=== PATIENT | male | born 1940 | race Caucasian/White ===

== ENCOUNTER 2018-08-02 19:37 | Inpatient (IN) | payer MEDICARE, MEDICAID ==
[2018-08-02 21:34] VITALS: BP 121/61
[2018-08-02] MEDS ORDERED: Maalox 30 mL Cup PO PRN (22:14)
[2018-08-02] MEDS ORDERED: Magnesium Hydroxide (MOM) 30 mL UDC PO PRN (22:14)
[2018-08-03] MEDS: Pantoprazole 40 mg/Packet PO SCH (06:37)
[2018-08-03] MEDS: INSULIN ASPART SLIDING SCALE 100 UNITS/ML UNIT SUBQ SCH ×4 (06:37→20:43)
[2018-08-03 07:02] LABS: ALB/GLOB RATIO 1.1 (1.0-1.8); ALBUMIN 2.7 gm/dL (4.2-5.5); ALKALINE PHOSPHATASE 56 U/L (34-104); ANION GAP 11.7 (7.0-16.0); BILIRUBIN,TOTAL 1.4 mg/dL (0.3-1.0); BUN - UREA NITROGEN 11 mg/dL (7-25); CALCIUM SERUM 8.3 mg/dL (8.6-10.3); CARBON DIOXIDE 28.2 mEq/L (21.0-31.0); CHLORIDE 107 mEq/L (98-107); CHOLESTEROL 89 mg/dL (<200); CREATININE - SERUM 0.5 mg/dL (0.7-1.3); GLUCOSE 79 mg/dL (70-105); HDL -HIGH DENSITY LIPOPROTEIN 20 mg/dL (23-92); SGOT 27 U/L (13-39); SGPT/ALT 23 U/L (7-52); SODIUM SERUM 144 mEq/L (136-145); TOTAL PROTEIN,SERUM 5.2 gm/dL (6.0-8.3); TRIGLYCERIDES 129 mg/dL (<150)
[2018-08-03 07:13] LABS: POTASSIUM SERUM 2.9 mEq/L (3.5-5.1)
[2018-08-03] MEDS ORDERED: Potassium Chloride 20 mEq ER Tab PO ONE ×2 (08:26→15:00)
[2018-08-03] MEDS: Atorvastatin Calcium 10 MG TAB PO SCH (09:00)
[2018-08-03] MEDS: Enoxaparin 40 mg/0.4 mL 0.4mL Syr SUBQ SCH (09:00)
[2018-08-03] MEDS: Multivitamin Tab PO SCH (09:00)
[2018-08-03] MEDS: Ferrous Sulfate 325 MG TAB PO SCH ×2 (09:00→16:21)
[2018-08-03] MEDS ORDERED: Non-Formulary Item 1 EA (Tiotropium Bromide [Spiriva] 18 MCG) INH SCH (09:00)
[2018-08-03] MEDS: Potassium Chloride 20 mEq ER Tab PO SCH ×2 (09:00→11:29)
--- NOTE | 2018-08-03 16:46 | History & Physical ---
ADMIT DATE: 08/03/2018 SUBJECTIVE: A 77-year-old male. REQUESTING PHYSICIAN: Dr. Brown. PRESENTING COMPLAINT: "I don't wanna eat." HISTORY OF PRESENT ILLNESS: A 77-year-old male who was a resident of [facility], fell and presented to [facility], noted to have a right hip fracture. For that, the patient underwent right ORIF of the right hip. Post-procedure, the patient was having some behavioral problem and started to refuse medication and started to stop eating and pulled out his Nieto catheter. The patient was seen by psychiatrist and recommended the patient should be admitted to inpatient psych for his behavioral issue. PAST MEDICAL HISTORY: Remarkable for: 1. Hyperlipidemia. 2. Psychotic disorder. 3. Hypertension. 4. Degenerative joint disease. 5. Glaucoma. 6. Legally blindness. 7. High risk for fall. MEDICATIONS AT HOME: Tylenol, [place], Maalox, vitamin C, Lipitor, Alphagan eye drop, Wellbutrin, Celexa, Colace, Trusopt eyedrop, Lovenox, iron, Neurontin, sliding scale insulin, albuterol, nebulizer treatment, lorazepam, multivitamin, Protonix, potassium, Seroquel, tramadol. ALLERGIES: The patient is not allergic to medications. SOCIAL HISTORY: He resides in assisted living facility. The patient has no smoking or alcohol use. FAMILY HISTORY: Unavailable. REVIEW OF SYSTEMS: The patient denies any headache, denies any chest pain, shortness of breath, palpitation, dizziness, nausea, vomiting, diarrhea, dysuria, hematuria, hematochezia, melena. No seizure or syncopal episode. The patient refused to eat. PHYSICAL EXAMINATION: GENERAL: The patient is alert, awake, oriented, lying in the bed without any acute distress. VITAL SIGNS: Temperature 98, pulse is 77, respiratory rate 18, blood pressure 130/90. SKIN: Warm to touch. Adequate skin turgor. No petechia, no purpura. HEENT: Normocephalic, atraumatic, legal blindness noted. Tongue was pink and coated. No facial asymmetry. NECK: Supple, no JVD, no hepatojugular reflex. No lymphadenopathy, thyromegaly or carotid bruit. HEART: Both heart sounds are regular. No S3, no S4, no murmur. CHEST AND LUNGS: Equal in expansion, no expiratory wheezing. ABDOMEN: Soft. No guarding, no rigidity. Liver and spleen not palpable. No palpable mass. EXTREMITIES: No edema. Intact dressing for recently done hip surgery noted, but it was a +2. No calf tenderness. NEUROLOGIC: Alert, awake, follows command. Decreased power in upper and lower extremity noted. AVAILABLE DIAGNOSTIC DATA: Performed at [facility] has been reviewed. CLINICAL IMPRESSION: 1. Status post ORIF for left hip fracture. 2. Diabetes. 3. Hyperlipidemia. 4. Legally blindness. 5. Gastroesophageal reflux disease. 6. Psychotic disorder. 7. Glaucoma. 8. Hypokalemia. 9. High risk for fall. PLAN: 1. Psychotic evaluation and management deferred to psychiatrist. 2. Continue to provide wound care. 3. Appropriate home medicine reconciliation. 4. Fall precautions. 5. Replace potassium. 6. Nutritional support. 7. General nursing care. 8. Follow lab. 9. We will continue to follow this patient during the stay in the hospital. I sincerely thank you, Dr. Brown, for giving me the opportunity to participate in the patient of yours. JOB# [id number]
[2018-08-04 06:24] LABS: % BASOPHILS 0.3 % (0.0-2.0); % EOSINOPHILS 0.3 % (0.0-5.0); % LYMPHOCYTES 9.2 % (20.0-50.0); % MONOCYTES 8.5 % (2.0-10.0); % NEUTROPHILS 81.7 % (40.0-80.0); HEMATOCRIT 28.6 % (41.0-60); HEMOGLOBIN 9.5 gm/dL (12-16); LYMPHOCYTE ABSOLUTE 0.7 Th/cmm (1.5-3.0); MEAN CELL VOLUME 92.6 fl (80-99); MEAN CORPUSCULAR HEMOGLOBIN 30.8 pg (27.0-31.0); MEAN CORPUSCULAR HGB CONC 33.3 pg (28.0-36.0); MEAN PLATELET VOLUME 7.1 fl; MONOCYTE ABSOLUTE 0.7 Th/cmm (0.3-1.0); NEUTROPHILE ABSOLUTE 6.6 Th/cmm (1.8-8.0); PLATELET COUNT 349 Th/cmm (150-400); RED BLOOD COUNT 3.08 Mil/cmm (3.80-5.80)
[2018-08-04] MEDS: INSULIN ASPART SLIDING SCALE 100 UNITS/ML UNIT SUBQ SCH ×4 (06:35→21:02)
[2018-08-04] MEDS: Pantoprazole 40 mg/Packet PO SCH (06:35)
[2018-08-04 06:37] LABS: ALBUMIN 2.7 gm/dL (4.2-5.5); ALKALINE PHOSPHATASE 57 U/L (34-104); ANION GAP 10.5 (7.0-16.0); BILIRUBIN,TOTAL 1.1 mg/dL (0.3-1.0); BUN - UREA NITROGEN 12 mg/dL (7-25); CALCIUM SERUM 8.3 mg/dL (8.6-10.3); CARBON DIOXIDE 28.4 mEq/L (21.0-31.0); CHLORIDE 106 mEq/L (98-107); CREATININE - SERUM 0.5 mg/dL (0.7-1.3); GLUCOSE 80 mg/dL (70-105); MAGNESIUM 2.1 mg/dL (1.9-2.7); SGOT 32 U/L (13-39); SGPT/ALT 27 U/L (7-52); SODIUM SERUM 142 mEq/L (136-145); TOTAL PROTEIN,SERUM 5.4 gm/dL (6.0-8.3)
[2018-08-04 06:44] LABS: POTASSIUM SERUM 2.9 mEq/L (3.5-5.1)
[2018-08-04] MEDS: Ferrous Sulfate 325 MG TAB PO SCH ×2 (10:00→18:00)
[2018-08-04] MEDS: Atorvastatin Calcium 10 MG TAB PO SCH (10:00)
[2018-08-04] MEDS: Multivitamin Tab PO SCH (10:17)
[2018-08-04] MEDS: Enoxaparin 40 mg/0.4 mL 0.4mL Syr SUBQ SCH (10:25)
[2018-08-04] MEDS: Potassium Chloride 20 mEq ER Tab PO SCH ×3 (10:25→21:07)
--- NOTE | 2018-08-05 00:53 | Progress Notes ---
DATE: IDENTIFICATION: A 77-year-old male. SUBJECTIVE: The patient is seen and examined. No new event. The patient had a followup lab, which revealed potassium of 2.9. The patient has a poor p.o. intake. The patient currently denies any chest pain or shortness of breath. PHYSICAL EXAMINATION: VITAL SIGNS: Temperature 98.2, pulse 61, respiratory 18, and blood pressure 118/58. HEENT: No facial asymmetry. NECK: Supple, legally blindness noted. HEART: Regular. CHEST AND LUNGS: Equal in expansion, no expiratory wheezing. ABDOMEN: Soft, no guarding or rigidity. Bowel sounds present. No palpable mass. EXTREMITIES: No edema. Intact dressing in the left upper lateral aspect of the lower extremity noted. CLINICAL IMPRESSION: 1. Hypokalemia. 2. Status post open reduction internal fixation, left hip. 3. Psychotic disorder. 4. Hypertension. 5. Hyperlipidemia. 6. Diabetes. 7. Degenerative joint disease. 8. Glaucoma. 9. Legally blindness. 10. High risk for fall. PLAN: Replace potassium today. Get the followup lab for tomorrow. Continue to monitor blood sugar, blood pressure. Fall precautions, nutritional support, and general nursing care. Continue current medication as prescribed. We will follow this patient during the stay in the hospital. JOB# [id number]
[2018-08-05 05:30] LABS: ANION GAP 10.7 (7.0-16.0); BUN - UREA NITROGEN 10 mg/dL (7-25); CALCIUM SERUM 8.3 mg/dL (8.6-10.3); CARBON DIOXIDE 26.2 mEq/L (21.0-31.0); CHLORIDE 107 mEq/L (98-107); CREATININE - SERUM 0.5 mg/dL (0.7-1.3); GLUCOSE 75 mg/dL (70-105); MAGNESIUM 2.1 mg/dL (1.9-2.7); POTASSIUM SERUM 3.9 mEq/L (3.5-5.1); SODIUM SERUM 140 mEq/L (136-145)
[2018-08-05] MEDS: Pantoprazole 40 mg/Packet PO SCH (06:29)
[2018-08-05] MEDS: INSULIN ASPART SLIDING SCALE 100 UNITS/ML UNIT SUBQ SCH ×4 (06:30→21:14)
[2018-08-05] MEDS: Ferrous Sulfate 325 MG TAB PO SCH ×3 (10:35→18:54)
[2018-08-05] MEDS: Atorvastatin Calcium 10 MG TAB PO SCH ×2 (10:35→12:16)
[2018-08-05] MEDS: Potassium Chloride 20 mEq ER Tab PO SCH (10:35)
[2018-08-05] MEDS: Multivitamin Tab PO SCH ×2 (10:35→12:16)
[2018-08-05] MEDS: Enoxaparin 40 mg/0.4 mL 0.4mL Syr SUBQ SCH (11:39)
--- NOTE | 2018-08-05 21:24 | Progress Notes ---
DATE: SUBJECTIVE: Chart reviewed and the patient interviewed. Also discussed the patient's condition with the staff and reviewed records and labs. The patient is still confused and he is still severely depressed and anxious. The patient also is feeling hopeless and is interacting minimally with peers and with others and he seems to have lack of energy and lack of motivations. The patient also is having mood swings and he is resisting care at times. Otherwise, the patient is compliant with taking his medications, although he still at times and resisting taking the medications. ASSESSMENT: The patient is still confused and depressed. TREATMENT PLAN: We will continue to monitor his behavior and his condition closely. Also, we will add Lexapro in a dose of 10 mg every day and we will continue to follow up. JOB# [id number]
[2018-08-06] MEDS: Pantoprazole 40 mg/Packet PO SCH (06:53)
[2018-08-06] MEDS: INSULIN ASPART SLIDING SCALE 100 UNITS/ML UNIT SUBQ SCH ×4 (06:54→20:57)
[2018-08-06] MEDS: Ferrous Sulfate 325 MG TAB PO SCH ×2 (08:25→17:35)
[2018-08-06] MEDS: Enoxaparin 40 mg/0.4 mL 0.4mL Syr SUBQ SCH (08:26)
[2018-08-06] MEDS: Atorvastatin Calcium 10 MG TAB PO SCH ×2 (08:31→09:16)
[2018-08-06] MEDS: Multivitamin Tab PO SCH ×2 (08:38→09:16)
--- NOTE | 2018-08-06 23:29 | Progress Notes ---
DATE: 08/06/2018 SUBJECTIVE: The patient is currently in the hospital, believes he is here for "sprained ankle," noted to be confused, still depressed, withdrawn, mostly keeps to himself. The patient under the care of Dr. Miranda. The patient is coming from another hospital, referred by Dr. Brown and noted to be suspicious, delusional and preoccupied. The patient is coming in from [facility]. ASSESSMENT: The patient is still impulsive, unpredictable, mostly withdrawn, sometimes refusing medications, at times poking his mouth, put his finger or forcing ____, preoccupied, talking to self, ongoing psychotic symptoms. MEDICATIONS: Reviewed including dosages and frequencies. We will continue Seroquel, continue inpatient hospitalization. The patient with ongoing behaviors. JOB# [id number]
[2018-08-07] MEDS: Pantoprazole 40 mg/Packet PO SCH (06:37)
[2018-08-07] MEDS: Enoxaparin 40 mg/0.4 mL 0.4mL Syr SUBQ SCH (10:14)
[2018-08-07] MEDS: Ferrous Sulfate 325 MG TAB PO SCH ×2 (10:14→16:56)
[2018-08-07] MEDS: Multivitamin Tab PO SCH (10:15)
[2018-08-07] MEDS: Atorvastatin Calcium 10 MG TAB PO SCH (10:15)
[2018-08-07] MEDS: INSULIN ASPART SLIDING SCALE 100 UNITS/ML UNIT SUBQ SCH ×3 (12:12→21:35)
--- NOTE | 2018-08-07 23:00 | Progress Notes ---
DATE: 08/07/2018 SUBJECTIVE: The patient is currently in the hospital, believing he is here for a sprained ankle, noted to be confused. He states, "I am not worth of talk." The patient making some voices comments towards people asking for cigarettes. The patient is still delusional, angry, seems preoccupied, fixated, and ruminative on smoking. Multiple episodes of awakenings last night and early childhood aide classroom awakenings, noted to be unpredictable, upset at staff. ASSESSMENT: The patient remains symptomatic, some disorientation noted, angry, lashes out at staff, angry outbursts, not safe for a lower level of care, going on races attire this morning. PLAN: We will continue to monitor. Medications were noted. Consider a dosage increase of Seroquel. JOB# [id number]
[2018-08-08] MEDS: INSULIN ASPART SLIDING SCALE 100 UNITS/ML UNIT SUBQ SCH ×4 (06:53→20:20)
--- NOTE | 2018-08-08 09:38 | Progress Notes ---
DATE: 08/08/2018 SUBJECTIVE: The patient seen and examined. The patient is lying in the bed. No new event. PHYSICAL EXAMINATION: VITAL SIGNS: On exam, temperature 97.6, pulse 75, respiratory rate 20, blood pressure 107/57. HEENT: No facial asymmetry. NECK: Supple, no JVD. HEART: Regular. CHEST AND LUNGS: Equal in expansion, no expiratory wheezing. ABDOMEN: Soft. EXTREMITIES: No edema. CLINICAL IMPRESSION: 1. Status post open reduction and internal fixation of left hip. 2. Psychotic disorder. 3. Hypertension. 4. Hyperlipidemia. 5. Diabetes. 6. Degenerative joint disease. 7. Glaucoma. 8. High risk for fall. PLAN: 1. Follow up lab. 2. Monitor blood pressure, blood sugar. 3. Fall precaution. 4. Nutritional support. 5. General nursing care. 6. Continue current medication as prescribed. 7. Care plan reviewed. JOB# [id number]
[2018-08-08] MEDS: Atorvastatin Calcium 10 MG TAB PO SCH (10:09)
[2018-08-08] MEDS: Pantoprazole 40 mg/Packet PO SCH (10:09)
[2018-08-08] MEDS: Ferrous Sulfate 325 MG TAB PO SCH ×2 (10:09→17:33)
[2018-08-08] MEDS: Multivitamin Tab PO SCH (10:09)
[2018-08-08] MEDS: Enoxaparin 40 mg/0.4 mL 0.4mL Syr SUBQ SCH (12:58)
--- NOTE | 2018-08-08 14:54 | Progress Notes ---
DATE: 08/08/[address] Miranda. Case was discussed with staff of the patient, reviewed records. This is a 77-year-old man, who was admitted on 08/02/2018. This is the patient of Dr. Miranda, who is still confused, depressed, anxious, feeling hopeless, minimal interaction with others, unable to make safe plan for self-care with no energy, no motivation with mood swings, irritability, resisting care at times, and refusing medication at times. No side effects with the medications, no sedation, no nausea, no extrapyramidal symptoms. He is on Celexa 20 mg a day, atorvastatin, iron, gabapentin, hydrocodone, insulin, and Seroquel 200 at bedtime that was increased on the and we will continue outpatient group therapy, milieu therapy, and adjust medications as needed. JOB# [id number]
[2018-08-09] MEDS: Hydrocodone/APAP 10 mg/325 mg Tab PO PRN (06:42)
[2018-08-09] MEDS: Pantoprazole 40 mg/Packet PO SCH (06:42)
--- NOTE | 2018-08-09 07:48 | Psychiatric Evaluation ---
DATE OF SERVICE: PSYCHIATRIC INITIAL EVALUATION AND MENTAL STATUS EXAM PATIENT'S AGE: 77. SEX: Male. PHYSICIAN: Rosa Miranda MD, MPH CHIEF COMPLAINT: Severe depression. HISTORY OF PRESENT ILLNESS: The patient is a 77-year-old male who has been under my care for several years in [facility]. The patient was admitted to [facility] and after the patient was medically stable, the patient was transferred to [facility] to continue his treatment for depression. The patient was complaining of left hip pain after a fall. Chart reviewed and the patient interviewed and discussed the patient's condition with the staff and reviewed records and labs. The patient has been feeling severely depressed since his medical condition deteriorated quickly during the last several years. The patient currently is legally blind and he also has hypertension and generalized weakness. The patient has been depressed and has been interacting minimally with peers and with others. Also, is having lack of motivations. The patient also has been isolative and has been sleeping a lot. Also, has been forgetful and confused. PAST PSYCHIATRIC HISTORY: The patient has history of bipolar depression. PAST MEDICAL HISTORY: The patient has generalized weakness as well as glaucoma and hypertension. The patient also has left hip pain. SOCIAL HISTORY: The patient lives in [facility]. The patient denies drinking alcohol or using any street drugs, but he was smoking about a pack a day. ALLERGIES: No known allergies. MENTAL STATUS EXAMINATION: The patient appears his stated age. Flat affect. Disheveled. In a depressed mood. Thought processes are mainly goal directed, but with poverty of speech. The patient denies any auditory or visual hallucinations, but seems to be preoccupied. The patient denies any thoughts of suicide or homicide. The patient is alert and oriented to person, but slightly confused. Impaired immediate and recent memory, but intact remote memory and he did remember the name of the qualitative field project manager and the construction rigger of the apartment center where he lives, also did remember my name. Fair insight and fair judgment. Seems to be of average intelligence based on his verbal ability. ASSESSMENT: PRIMARY DIAGNOSIS: Bipolar disorder, psychotic disorder, severe, without psychotic features. SECONDARY DIAGNOSIS: Dementia, moderate. TREATMENT PLAN: We will monitor the patient's behavior and condition closely. We will also adjust psychotropic medications and work on in an effective coping. AFTER DISCHARGE PLAN: The patient will return to [facility] if physically getting better with plans for outpatient treatment and followup. CRITERIA FOR DISCHARGE: The patient will not be as depressed and stabilize psychotropic medications and establish outpatient treatment plans. [facility]# [id number]
[2018-08-09] MEDS: Multivitamin Tab PO SCH (09:37)
[2018-08-09] MEDS: Ferrous Sulfate 325 MG TAB PO SCH ×2 (09:37→16:54)
[2018-08-09] MEDS: Atorvastatin Calcium 10 MG TAB PO SCH (09:38)
--- NOTE | 2018-08-09 09:42 | Progress Notes ---
DATE: PATIENT'S IDENTIFICATION: A 77-year-old male. SUBJECTIVE: The patient was seen and examined. The patient is lying in the bed. No new event. OBJECTIVE: VITAL SIGNS: Temperature 97.2, pulse 86, respiratory rate 20, blood pressure is 152/82. HEENT: No facial asymmetry. NECK: Supple, no JVD. HEART: Both heart sounds are regular. CHEST AND LUNGS: Equal in expansion, no expiratory wheezing. ABDOMEN: Soft, no guarding, no rigidity. Bowel sounds are present. No palpable mass. EXTREMITIES: No edema. Intact dressing to the left upper lateral aspect of the lower extremity noted. CLINICAL IMPRESSION: 1. Status post open reduction and internal fixation left hip. 2. Psychotic disorder. 3. Hypertension. 4. Hyperlipidemia. 5. Degenerative joint disease. 6. High risk for fall. 7. Legally blindness. 8. Gastroesophageal reflux disease. PLAN: 1. Psychotic evaluation and management deferred to psychiatrist. 2. Fall precautions. 3. Antihypertensive medicine. 4. General nursing care. 5. Nutritional support. 6. Chronic disease management. 7. Follow lab. 8. Care plan reviewed and discussed with staff. JOB# [id number]
[2018-08-09] MEDS: Enoxaparin 40 mg/0.4 mL 0.4mL Syr SUBQ SCH (11:00)
[2018-08-09] MEDS: INSULIN ASPART SLIDING SCALE 100 UNITS/ML UNIT SUBQ SCH ×3 (12:00→20:50)
--- NOTE | 2018-08-09 23:24 | Progress Notes ---
DATE: 08/09/2018 Case was discussed with staff of the patient, reviewed records. The patient continues to be depressed, anxious, confused, isolating himself, unable to make safe plan for self-care, unable to express himself very well. He is sleeping well, eating well. He is compliant with the medication with no side effects, no sedation, no nausea, and no extrapyramidal symptoms. The only lab work I have for him is blood sugar that is high at 129 that went down today to 94 and we will continue to work with the patient in group therapy, milieu therapy, and adjust the medication as needed. JOB# [id number]
[2018-08-10] MEDS: INSULIN ASPART SLIDING SCALE 100 UNITS/ML UNIT SUBQ SCH ×4 (06:57→20:55)
[2018-08-10] MEDS: Pantoprazole 40 mg/Packet PO SCH (07:02)
[2018-08-10] MEDS: Atorvastatin Calcium 10 MG TAB PO SCH (09:26)
[2018-08-10] MEDS: Multivitamin Tab PO SCH (09:27)
[2018-08-10] MEDS: Ferrous Sulfate 325 MG TAB PO SCH ×2 (09:27→17:25)
[2018-08-10] MEDS: Enoxaparin 40 mg/0.4 mL 0.4mL Syr SUBQ SCH (11:00)
--- NOTE | 2018-08-11 05:29 | Progress Notes ---
DATE: Chart reviewed and the patient interviewed. Also discussed the patient's condition with the staff and reviewed records and labs. The patient continued to be depressed mood and is still confused. The patient also still stays by himself most of the time and has minimal interaction with others. Also seems to be confused and also ADLs are still poor. He also is still showing lack of motivations. Otherwise, the patient is compliant with taking his medications and no side effects of medications, which includes his Wellbutrin 100 mg daily as well as Neurontin 300 mg 4 times a day and Seroquel 100 mg in the morning and 200 mg at bedtime. We will continue adjusting the medications and continue to work on his ineffective coping and follow up closely. JOB# [id number]
[2018-08-11] MEDS: INSULIN ASPART SLIDING SCALE 100 UNITS/ML UNIT SUBQ SCH ×4 (06:46→21:20)
[2018-08-11] MEDS: Pantoprazole 40 mg/Packet PO SCH (06:46)
[2018-08-11] MEDS: Ipratropium Neb 0.5 mg/2.5 mL UD HHN SCH ×4 (06:57→19:33)
--- NOTE | 2018-08-11 08:37 | Progress Notes ---
DATE: SUBJECTIVE: Chart reviewed and the patient interviewed. Also discussed the patient's condition with the staff and reviewed records and labs. The patient is still in a depressed mood and the patient is still anxious. The patient also is still guarded and withdrawn. The patient also is still feeling hopeless and helpless and interacting minimally with others. The patient seems to be more depressed than agitated at the time being. He also is having lack of motivations and lack of energy and complaining of feeling tired. Otherwise, the patient is compliant with taking his medications, uncooperative with his treatment. ASSESSMENT: The patient is still depressed and is still confused. TREATMENT PLAN: We will decrease Seroquel to 50 mg in the morning and 100 mg at bedtime. Also, we will increase Wellbutrin to 150 mg every morning. Also, continue to work on his ineffective coping and follow up closely. Also encouraged the patient to interact more with others. JOB# [id number]
[2018-08-11] MEDS: Atorvastatin Calcium 10 MG TAB PO SCH (08:47)
[2018-08-11] MEDS: Multivitamin Tab PO SCH (08:49)
[2018-08-11] MEDS: Ferrous Sulfate 325 MG TAB PO SCH ×2 (08:49→16:11)
[2018-08-11] MEDS: Enoxaparin 40 mg/0.4 mL 0.4mL Syr SUBQ SCH (09:24)
--- NOTE | 2018-08-11 10:08 | Progress Notes ---
DATE: 08/11/2018 PATIENT'S ID: A 77-year-old male. SUBJECTIVE: The patient was seen and examined. The patient is lying in the bed. Still having period of not eating. OBJECTIVE: VITAL SIGNS: Temperature 98, pulse is 80, respiratory rate is 18, blood pressure is 130/80. HEENT: No facial asymmetry. Legally blindness noted. NECK: Supple, no JVD. HEART: Regular. CHEST AND LUNGS: Equal in expansion, no expiratory wheezing. ABDOMEN: Soft. No guarding, no rigidity. Bowel sounds are present. No palpable mass. EXTREMITIES: No edema. Left upper lateral aspect of intact dressing noted. CLINICAL IMPRESSIONS: 1. Status post open reduction internal fixation left hip. 2. Psychotic disorder. 3. Hypertension. 4. Diabetes. 5. Hyperlipidemia. 6. Degenerative joint disease. 7. Gastroesophageal reflux disease. 8. Legal blindness. PLAN: 1. Continue DVT prophylaxis. 2. PT evaluation. 3. Psych medication. 4. Antihypertensive medicine. 5. Statin. 6. General nursing care. 7. Nutritional support. 8. Chronic disease management. 9. Follow lab. 10. Care plan reviewed and discussed with staff. JOB# [id number]
[2018-08-12 06:28] LABS: % BASOPHILS 0.7 % (0.0-2.0); % EOSINOPHILS 1.1 % (0.0-5.0); % LYMPHOCYTES 17.2 % (20.0-50.0); % MONOCYTES 10.8 % (2.0-10.0); % NEUTROPHILS 70.2 % (40.0-80.0); HEMATOCRIT 29.4 % (41.0-60); HEMOGLOBIN 9.7 gm/dL (12-16); LYMPHOCYTE ABSOLUTE 0.7 Th/cmm (1.5-3.0); MEAN CELL VOLUME 89.7 fl (80-99); MEAN CORPUSCULAR HEMOGLOBIN 29.5 pg (27.0-31.0); MEAN CORPUSCULAR HGB CONC 32.8 pg (28.0-36.0); MONOCYTE ABSOLUTE 0.5 Th/cmm (0.3-1.0); NEUTROPHILE ABSOLUTE 3.1 Th/cmm (1.8-8.0); PLATELET COUNT 302 Th/cmm (150-400); RED BLOOD COUNT 3.28 Mil/cmm (3.80-5.80); RED CELL DISTRIBUTION WIDTH 13.1 % (11.5-20.0); WHITE BLOOD COUNT 4.3 Th/cmm (4.8-10.8)
[2018-08-12] MEDS: INSULIN ASPART SLIDING SCALE 100 UNITS/ML UNIT SUBQ SCH ×4 (06:44→21:57)
[2018-08-12] MEDS: Ipratropium Neb 0.5 mg/2.5 mL UD HHN SCH ×4 (07:09→19:21)
[2018-08-12 07:24] LABS: ALB/GLOB RATIO 1.2 (1.0-1.8); ALBUMIN 3.1 gm/dL (4.2-5.5); ALKALINE PHOSPHATASE 87 U/L (34-104); ANION GAP 8.5 (7.0-16.0); BILIRUBIN,TOTAL 0.5 mg/dL (0.3-1.0); BUN - UREA NITROGEN 13 mg/dL (7-25); CALCIUM SERUM 8.8 mg/dL (8.6-10.3); CARBON DIOXIDE 29.6 mEq/L (21.0-31.0); CHLORIDE 106 mEq/L (98-107); CREATININE - SERUM 1.2 mg/dL (0.7-1.3); GLUCOSE 92 mg/dL (70-105); POTASSIUM SERUM 4.1 mEq/L (3.5-5.1); SGOT 15 U/L (13-39); SGPT/ALT 14 U/L (7-52); SODIUM SERUM 140 mEq/L (136-145); TOTAL PROTEIN,SERUM 5.7 gm/dL (6.0-8.3)
--- NOTE | 2018-08-12 09:34 | Progress Notes ---
DATE: PATIENT'S IDENTIFICATION: A 77-year-old male. SUBJECTIVE: The patient seen and examined. The patient is lying in the bed. The patient is noted to have a pressure ulcer on the right heel. The patient is pretty much bedbound, air mattress has been given. The patient stated that he has pain. Denies any chest pain or shortness of breath. PHYSICAL EXAMINATION: VITAL SIGNS: Temperature 98.1, pulse 80, respiratory rate 18, blood pressure is 102/64. HEENT: No facial asymmetry, legally blindness noted. NECK: Supple, no JVD. HEART: Regular. CHEST AND LUNGS: Equal in expansion, no expiratory wheezing. ABDOMEN: Soft. EXTREMITIES: Stage 2 pressure ulcer on the right heel noted without any sign of active infection. AVAILABLE DIAGNOSTIC DATA: White count of 4.3, hemoglobin 9.7, platelet count of . BUN and creatinine are normal. Albumin 3.1. CLINICAL IMPRESSION: 1. Stage 2 pressure ulcer on the right heel. No evidence of an active infection. 2. Diabetes. 3. Hypertension. 4. Status post open reduction and internal fixation left hip. 5. Degenerative joint disease. 6. Legally blindness. 7. Decline in self-care, mobility. 8. Psychotic disorder. PLAN: Discontinue antibiotics since there is no sign of active infection. Local wound care will be followed by the wound care nurse. Continue to monitor blood sugar, blood pressure, fall precautions, nutritional support, general nursing care and we will continue to follow this patient during the stay in the hospital. JOB# [id number]
[2018-08-12] MEDS: Pantoprazole 40 mg/Packet PO SCH (09:38)
[2018-08-12] MEDS: Multivitamin Tab PO SCH (09:38)
[2018-08-12] MEDS: Atorvastatin Calcium 10 MG TAB PO SCH (09:39)
[2018-08-12] MEDS: Ferrous Sulfate 325 MG TAB PO SCH ×2 (09:39→17:11)
[2018-08-12] MEDS: Hydrocodone/APAP 10 mg/325 mg Tab PO PRN ×2 (09:39→18:09)
[2018-08-12] MEDS: Enoxaparin 40 mg/0.4 mL 0.4mL Syr SUBQ SCH (09:39)
[2018-08-12] MEDS ORDERED: Probiotic Screen MC PRN (14:25)
[2018-08-13] MEDS: Pantoprazole 40 mg/Packet PO SCH (06:47)
[2018-08-13] MEDS: INSULIN ASPART SLIDING SCALE 100 UNITS/ML UNIT SUBQ SCH ×4 (06:55→20:56)
[2018-08-13] MEDS: Ipratropium Neb 0.5 mg/2.5 mL UD HHN SCH ×4 (07:28→20:16)
[2018-08-13] MEDS: Atorvastatin Calcium 10 MG TAB PO SCH (09:29)
[2018-08-13] MEDS: Lactobacillus Rhamnosus GG 15 Billion CFU CAP.SPRINK PO SCH (09:30)
[2018-08-13] MEDS: Multivitamin Tab PO SCH (09:30)
[2018-08-13] MEDS: Enoxaparin 40 mg/0.4 mL 0.4mL Syr SUBQ SCH (09:30)
[2018-08-13] MEDS: Ferrous Sulfate 325 MG TAB PO SCH ×2 (09:30→17:10)
[2018-08-13] MEDS: Hydrocodone/APAP 10 mg/325 mg Tab PO PRN ×3 (09:31→17:10)
--- NOTE | 2018-08-14 00:06 | Progress Notes ---
DATE: 08/13/2018 SUBJECTIVE: The patient was seen and examined. The patient is lying in the bed. The patient has been on and off complaining of pain. The patient is otherwise cooperative. OBJECTIVE: VITAL SIGNS: Temperature 98.8, pulse 73, respiratory rate 18, blood pressure 105/55. HEENT: Unremarkable, legally blindness. Tongue was pink and coated. NECK: Supple, no JVD. HEART: Regular. CHEST AND LUNG: Equal in expansion, no expiratory wheezing. ABDOMEN: Soft, no guarding or rigidity. Bowel sounds present. No palpable mass. EXTREMITIES: No edema, stage 2 pressure wound noted. CLINICAL IMPRESSIONS: 1. Diabetes. 2. Status post open reduction internal fixation, left hip. 3. Diabetes. 4. Hypertension. 5. Legal blindness. 6. Degenerative joint disease. 7. Decline in self-care, mobility. 8. High risk for fall. PLAN: 1. Continue to provide wound care. 2. Pain management. 3. PT, OT. 4. General nursing care. 5. Nutritional support. 6. Antibiotics should be discontinued since the wound looks pretty clean. 7. Follow lab. 8. Psych medication and psych followup. 9. Care plan reviewed and discussed with staff. JOB# [id number]
[2018-08-14] MEDS: INSULIN ASPART SLIDING SCALE 100 UNITS/ML UNIT SUBQ SCH ×4 (06:42→20:49)
[2018-08-14] MEDS: Ipratropium Neb 0.5 mg/2.5 mL UD HHN SCH ×4 (06:45→19:05)
[2018-08-14] MEDS: Pantoprazole 40 mg/Packet PO SCH (06:52)
[2018-08-14] MEDS: Lactobacillus Rhamnosus GG 15 Billion CFU CAP.SPRINK PO SCH (08:45)
[2018-08-14] MEDS: Multivitamin Tab PO SCH (08:45)
[2018-08-14] MEDS: Atorvastatin Calcium 10 MG TAB PO SCH (08:45)
[2018-08-14] MEDS: Ferrous Sulfate 325 MG TAB PO SCH ×2 (08:46→16:51)
[2018-08-14] MEDS: Hydrocodone/APAP 10 mg/325 mg Tab PO PRN ×4 (08:46→20:59)
--- NOTE | 2018-08-14 10:25 | Progress Notes ---
DATE: SUBJECTIVE: He is a 77-year-old male who was initially brought in here from the [facility], medically stable and transferred to [facility], had been feeling depressed and his medical condition deteriorated quickly through the last several years. CURRENT MEDICATION REGIMEN: Includes Citalopram 20 mg a day, clindamycin, gabapentin, Ativan as needed, Seroquel 50 mg in the morning and 100 mg at nighttime. No aggressive behaviors overnight. Today on [id number] noted to have depressed mood, slightly anxious, feelings of helplessness and hopelessness with minimal engaging with others. ASSESSMENT AND PLAN: Due to the patient is still active depressed and recent augmentation of his medications of the Seroquel and Wellbutrin. We will continue with primary psychiatrist's treatment plan and goals. [facility]# [id number]
[2018-08-14] MEDS: Enoxaparin 40 mg/0.4 mL 0.4mL Syr SUBQ SCH (10:33)
--- NOTE | 2018-08-14 18:44 | Progress Notes ---
DATE: 08/12/2018 PSYCHIATRIC PROGRESS NOTE SUBJECTIVE: Chart reviewed and the patient interviewed. Also discussed the patient's condition with the staff and reviewed records and labs. The patient continued to be in a depressed mood. The patient also is confused and depressed and is interacting minimally with others. The patient also is still feeling hopeless and helpless and he still had periods of confusion and needs lots of redirections. He also still at times gets agitated, especially when staff tries to help him with his ADLs. Otherwise, the patient is compliant with taking medications with no side effect of medications. ASSESSMENT: The patient is still depressed and needs lots of redirections. TREATMENT PLAN: Continue supportive therapy. Also, continue to monitor his behavior closely. Also, we will continue to work on his confusion as well as his ineffective coping and continue to follow up. JOB# [id number]
--- NOTE | 2018-08-14 22:55 | Progress Notes ---
DATE: 08/14/2018 The patient was seen and evaluated. The patient's chart reviewed. COVERING FOR: Dr. Miranda No acute events reported overnight. Today on [id number] evaluation, the patient denies any side effects to medications. He does report finding slightly depressed and anxious and at times also helpless. MENTAL STATUS EXAMINATION: Disengaged, withdrawn, minimally interactive with others. ASSESSMENT AND PLAN: Due to the patient's depression, we will continue with the recent adjustments and augmentations to the current medication regimen with Wellbutrin and Seroquel, which he is able to tolerate without complications or side effects to the medications. JOB# [id number]
[2018-08-15] MEDS: INSULIN ASPART SLIDING SCALE 100 UNITS/ML UNIT SUBQ SCH ×3 (06:36→16:21)
[2018-08-15] MEDS: Pantoprazole 40 mg/Packet PO SCH (06:36)
[2018-08-15] MEDS: Ipratropium Neb 0.5 mg/2.5 mL UD HHN SCH ×3 (06:48→15:46)
[2018-08-15] MEDS: Lactobacillus Rhamnosus GG 15 Billion CFU CAP.SPRINK PO SCH (09:18)
[2018-08-15] MEDS: Atorvastatin Calcium 10 MG TAB PO SCH (09:19)
[2018-08-15] MEDS: Multivitamin Tab PO SCH (09:19)
[2018-08-15] MEDS: Ferrous Sulfate 325 MG TAB PO SCH ×2 (09:19→16:44)
[2018-08-15] MEDS: Enoxaparin 40 mg/0.4 mL 0.4mL Syr SUBQ SCH (09:22)
--- NOTE | 2018-08-15 12:56 | Progress Notes ---
DATE: PATIENT'S IDENTIFICATION: A 77-year-old male. SUBJECTIVE: The patient is seen and examined. The patient is going to be discharged to lower level of care. The patient has no active bleeding from the surgical site. Wound cultures did reveal the patient has MRSA. The patient has no signs or symptoms of active infection. OBJECTIVE VITAL SIGNS: On today's exam; temperature 98, pulse is 76, respiratory rate 18, and blood pressure 108/59. HEENT: No facial asymmetry, legally blindness noted. NECK: Supple. No JVD. HEART: Regular. CHEST AND LUNGS: Equal in expansion, no expiratory wheezing. ABDOMEN: Soft. No guarding. No rigidity. Liver and spleen are not palpable. No palpable mass. EXTREMITIES: No edema. CLINICAL IMPRESSIONS: 1. Status post open reduction and internal fixation left hip. 2. Psychotic disorder. 3. Hypertension. 4. Diabetes mellitus. 5. Degenerative joint disease. 6. High risk for fall. PLAN: Continue current medication as prescribed. For methicillin-resistant Staphylococcus aureus colonization, Bactroban ointment will be given to the patient as well. Continue to provide symptoms management as well as medication management. The patient is stable to go to lower level of care as well. Care plan reviewed and discussed with staff. JOB# [id number]
--- NOTE | 2018-08-16 13:19 | Discharge Summary ---
DATE OF DISCHARGE: 08/15/2018 FINAL DIAGNOSIS/PRIMARY DIAGNOSIS: Bipolar disorder; depressed episode, severe, with psychotic features. SECONDARY DIAGNOSIS: Dementia, moderate. REASON FOR HOSPITALIZATION: The patient was admitted to the hospital because of confusion, depression and generalized weakness and he was transferred from [facility]. HOSPITAL COURSE: The patient continued to be forgetful, confused and depressed. The patient also seems to be sedated and the Seroquel was decreased to 50 in the morning and 100 at bedtime. The patient was cooperative and compliant with taking his medication. Gradually, the patient's affect was slightly brighter. The patient was less agitated. Also, was compliant with taking medications. The patient was discharged to [facility] for continuation of his medical problems. Physical examination of the patient showed no major medical issues while in [facility] and the patient had no side effect of medications and no major abnormal labs. AFTER DISCHARGE PLANS: The patient discharged from the hospital and went to [facility] with plans for outpatient treatment there. EXPECTED OUTCOME AFTER DISCHARGE: Fair if the patient continued to take his medications. JOB# [id number]
== END 2018-08-15 17:55 | DRG 885 ==
LOC: GERO2 19:37 → GERO 08-03 07:38
PROVIDERS: ADMIT Psychiatry & Neurology Psychiatry; ATTEND Psychiatry & Neurology Psychiatry
DX: F31.5 Bipolar disorder, current episode depressed, severe, with psychotic features (principal); F03.90 Unspecified dementia, unspecified severity, without behavioral disturbance, psychotic disturbance, mood disturbance, and anxiety; M84.359D Stress fracture, hip, unspecified, subsequent encounter for fracture with routine healing; E11.9 Type 2 diabetes mellitus without complications; K21.9 Gastro-esophageal reflux disease without esophagitis; H40.9 Unspecified glaucoma; R53.1 Weakness; E87.6 Hypokalemia; E78.5 Hyperlipidemia, unspecified; I10 Essential (primary) hypertension; M19.90 Unspecified osteoarthritis, unspecified site; F17.210 Nicotine dependence, cigarettes, uncomplicated; L89.612 Pressure ulcer of right heel, stage 2; H54.8 Legal blindness, as defined in USA; Z79.899 Other long term (current) drug therapy; Z91.81 History of falling; Z79.51 Long term (current) use of inhaled steroids; Z87.81 Personal history of (healed) traumatic fracture; Z79.4 Long term (current) use of insulin
CPT/HCPCS: 36415-UA; 80048-TC; 80053-TC; 80061-TC; 82948-90; 83036-90; 83735-TC; 85025-TC; 87046-90; 87070-90; 87075-90; 90779; 94640; 94760; 97530; J1650; J1815; X3904; Z7610